=== PATIENT | male | born 2000 | race Caucasian/White ===

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

== ENCOUNTER 2021-07-26 05:43 | Emergency (ER) | payer MEDICAID, OTHER ==
[~2021-07-26] VITALS: Ht 177.8 cm; Wt 93.0 kg
[2021-07-26 06:40] VITALS: BP_SYST 104
[2021-07-26] MEDS ORDERED: DIPH-TET-PERTUS Vaccine 0.5 ML VIAL (ADACEL) I.M. ONE (06:45)
[2021-07-26] MEDS ORDERED: LIDOCAINE 1% 10 MG/ML, 20 ML MDV SUBCUT ONE (06:45)
[2021-07-26] MEDS ORDERED: DIPH-TET Vacc 0.5 ML VIAL I.M. ONE (07:02)
[2021-07-26] MEDS ORDERED: BACITRACIN 1 GM OINT TP ONE ×2 (08:00→08:02)
== END 2021-07-26 07:56 | disposition home or self-care (01) ==
LOC: SED 05:43
DX: S61.012A Laceration without foreign body of left thumb without damage to nail, initial encounter (principal); W45.8XXA Other foreign body or object entering through skin, initial encounter; Y93.64 Activity, baseball; Y92.89 Other specified places as the place of occurrence of the external cause; Y99.8 Other external cause status
CPT/HCPCS: 12002; 73130; 90471; 90714; 99283; J2001